=== PATIENT | male | born 1960 | race Caucasian/White ===

== ENCOUNTER 2023-09-17 18:37 | Observation (INO) | payer MEDICAID ==
[2023-09-17] MEDS ORDERED: Diphtheria,Pertussis(Acell),Tetanus Vaccine 0.5 ML Syringe IM ONE (19:17)
[2023-09-17 19:32] LABS: BASOPHILS ABSOLUTE AUTO 0.01 K/uL (0.02-0.10); BASOPHILS PERCENT AUTO 0.1 % (0.0-0.5); EOSINOPHILS ABSOLUTE AUTO 0.03 K/uL (0.04-0.40); EOSINOPHILS PERCENT AUTO 0.3 % (1.0-5.0); HEMATOCRIT 42.6 % (40.0-54.0); HEMOGLOBIN 14.5 g/dL (13.0-18.0); LYMPHOCYTES ABSOLUTE AUTO 1.01 K/uL (1.50-4.00); LYMPHOCYTES PERCENT AUTO 8.4 % (20.0-40.0); MEAN CORPUSCULAR HEMOGLOBIN 30.3 pg (27.0-32.0); MEAN CORPUSCULAR VOLUME 89 fL (76-96); MEAN PLATELET VOLUME 9.6 fL (6.0-10.0); MONOCYTES ABSOLUTE AUTO 0.53 K/uL (0.20-0.80); MONOCYTES PERCENT AUTO 4.4 % (3.0-10.0); NEUTROPHILS ABSOLUTE AUTO 10.41 K/uL (2.00-7.50); NEUTROPHILS PERCENT AUTO 86.8 % (45.0-70.0); PLATELET COUNT,PLT 180 K/uL (150-400); RED BLOOD CELL COUNT 4.79 M/uL (4.50-6.50); RED CELL DISTRIBUTION WIDTH 14.3 % (11.0-16.0)
[2023-09-17 19:53] LABS: A/G RATIO 1.2 (0.8-2.0); ALBUMIN 4.1 g/dL (3.4-5.0); ANION GAP 13.2 mmol/L (5.0-15.0); BILIRUBIN TOTAL 0.4 mg/dL (0.0-1.0); BUN/CREATININE RATIO 25.6 (6-25); CALCIUM 9.1 mg/dL (8.5-10.1); CARBON DIOXIDE,CO2 26.6 mmol/L (21.0-32.0); CREATININE 0.82 mg/dL (0.70-1.30); EST CRCL DRUG DOSING (CG) 91.01 mL/min; POTASSIUM,K 3.8 mmol/L (3.5-5.1); PROTEIN TOTAL,TP 7.5 g/dL (6.4-8.2)
[2023-09-17] MEDS ORDERED: Lidocaine 1% 5 ML VIAL INJECT ONE (20:07)
[2023-09-17] MEDS ORDERED: Bacitracin Oint 1 GM U/D Packet TOP ONE (20:09)
[2023-09-17] MEDS ORDERED: Sodium Chloride 0.9% 10 ML Syringe FLUSH PRN (20:10)
[2023-09-17] MEDS ORDERED: ceFAZolin 1 GM Vial ONE (20:26)
[2023-09-17] MEDS: Sodium Chloride 0.9% 1,000 ML IV SCH (20:30)
[2023-09-17] MEDS: ceFAZolin 1 GM in Premix Bag 1 BAG IV SCH (20:37)
[2023-09-17] MEDS ORDERED: Acetaminophen 500 MG Tab PO ONE (20:39)
[2023-09-17] MEDS ORDERED: Acetaminophen 500 MG Tab ONE (20:40)
[2023-09-17] MEDS ORDERED: ceFAZolin 1 GM in Premix Bag 1 BAG IV SCH (22:00)
[2023-09-18] MEDS ORDERED: Morphine 2 MG/ML SYRINGE IVPUSH ONE (01:05)
[2023-09-18] MEDS ORDERED: ceFAZolin 1 GM Vial ONE (03:44)
[2023-09-18] MEDS: ceFAZolin 1 GM in Premix Bag 1 BAG IV SCH (03:54)
[2023-09-18] MEDS ORDERED: ceFAZolin 1 GM in Premix Bag 1 BAG IV SCH (04:00)
[2023-09-18] MEDS: Sodium Chloride 0.9% 1,000 ML IV SCH (05:56)
[2023-09-18] MEDS ORDERED: Acetaminophen 500 MG Tab PO ONE (09:02)
[2023-09-18 09:28] VITALS: BP 121/56; PULSE 77
== END 2023-09-18 09:18 | disposition home or self-care (01) ==
LOC: LB.ED 18:37 → LB.MS 20:14 → UNDOADMOB 20:30
PROVIDERS: ADMIT Nurse Practitioner Family; ATTEND Nurse Practitioner Family
DX: S02.91XB Unspecified fracture of skull, initial encounter for open fracture (principal); S01.01XA Laceration without foreign body of scalp, initial encounter; Z23 Encounter for immunization; W22.8XXA Striking against or struck by other objects, initial encounter
CPT/HCPCS: 12002; 36415; 70450; 80053; 85025; 90471; 90715; 96361; 96365; 96366; 96375; 99222; 99238; 99284-25; A9270-GY; G0378; J0690; J2270; J7030